=== PATIENT | male | born 1965 | race Caucasian/White ===

== ENCOUNTER 2018-11-07 13:00 | Inpatient (IN) | payer OTHER ==
[~2018-11-07] VITALS: Ht 182.9 cm; Wt 138.3 kg
[2018-11-07] MEDS ORDERED: MACROBID 100 M100 MG PO (17:00)
== END 2018-11-18 10:08 | disposition home or self-care (01) | DRG 660 ==
LOC: SURG 11-16 06:00 → O/R 11-16 06:00 → SURH 11-16 08:30 → SURG 11-16 14:55
PROVIDERS: ADMIT Urology
PROC: 0T9780Z Drainage of Left Ureter with Drainage Device, Via Natural or Artificial Opening Endoscopic (ICD-10-PCS; 2018-11-16)
PROC: BT1FZZZ Fluoroscopy of Left Kidney, Ureter and Bladder (ICD-10-PCS; 2018-11-16)
PROC: 0TC13ZZ Extirpation of Matter from Left Kidney, Percutaneous Approach (ICD-10-PCS; principal; 2018-11-16 08:30)
PROC: BT12ZZZ Fluoroscopy of Left Kidney (ICD-10-PCS; 2018-11-18)
DX: N20.0 Calculus of kidney (principal); N39.0 Urinary tract infection, site not specified; R31.0 Gross hematuria; E66.8 Other obesity

== ENCOUNTER 2018-12-14 08:06 | Outpatient (CLI) | payer OTHER ==
[~2018-12-14 08:06] MED LIST: MACROBID 100 M100 MG PO
== END 2018-12-14 13:21 ==
LOC: LAB 08:06
DX: N30.00 Acute cystitis without hematuria (principal)

== ENCOUNTER 2018-12-14 08:27 | Outpatient (CLI) | payer OTHER | END 2018-12-14 08:33 | disposition home or self-care (01) | LOC: RX STUDY 08:27 | DX: N20.0 Calculus of kidney (principal) ==